=== PATIENT | male | born 1990 | race American Indian/Alaskan Native ===

== ENCOUNTER 2019-05-06 02:52 | Emergency (ER) | payer SELFPAY ==
[2019-05-06 03:03] VITALS: BP 123/82
[2019-05-06 03:44] LABS: Bacteria,Urine 1+ /HPF (Negative); Bilirubin,Urine NEG (Negative); Blood,Urine LG (Negative); Color,Urine Yellow (Yellow); Mucus,Urine FEW /HPF; Protein,Urine <15 mg/dL mg/dL (Negative)
[2019-05-06] MEDS ORDERED: SODIUM CHLORIDE 0.9% 1000 ML 1,000 ML IV ONE (03:47)
[2019-05-06] MEDS ORDERED: ONDANSETRON 4 MG/2 ML INJ IV ONE (03:47)
[2019-05-06] MEDS ORDERED: KETOROLAC 30 MG/1 ML INJ IV ONE (03:47)
--- NOTE | 2019-05-06 03:52 | Emergency Department Report ---
ED Abdominal Pain HPI - General Chief Complaint: Abdominal Pain Stated Complaint: RT FLANK PAIN Time Seen by Provider: 05/06/19 03:46 Source: patient Mode of arrival: Ambulatory Limitations: No Limitations - History of Present Illness Initial Comments: Mr. Bradley is a 29 y/o aam who presents for right flank pain radiating to superpubic region x 3 weeks with n/v , urinary frequency, denies hematuria, denies fever or chills. symptomes relieved by nothing, symptoms exacerbated by movment. Complaint: flank pain Onset/Timin -: week(s) Location: R flank Radiation: R flank Severity: moderate Severity scale (0 -10): 5 Quality: aching, sharp Consistency: constant Improves With: nothing Worsens With: nothing Associated Symptoms: nausea, vomiting. denies: diarrhea, constipation, melena, hematuria - Related Data Previous Rx's Medication Instructions Recorded Last Taken Type Ibuprofen [Motrin 800 MG tab] 800 mg PO Q8HR PRN #30 tablet 09/15/15 Unknown Rx Acetaminophen/Codeine [Tylenol 1 tab PO Q6H PRN #20 tab 11/04/15 Unknown Rx /Codeine # 3 tab] Cyclobenzaprine [Flexeril 10 MG 10 mg PO TID PRN #30 tablet 11/04/15 Unknown Rx TAB] Ibuprofen [Motrin 600 MG tab] 600 mg PO Q8H PRN #40 tablet 11/04/15 Unknown Rx Ciprofloxacin HCl [Ciprofloxacin 500 mg PO BID 10 Days #20 tab 05/06/19 Unknown Rx TAB] Ketorolac [Toradol] 10 mg PO Q6H PRN #12 tablet 05/06/19 Unknown Rx Tamsulosin [Flomax] 0.4 mg PO QDAY #7 cap 05/06/19 Unknown Rx Allergies Allergy/AdvReac Type Severity Reaction Status Date / Time No Known Allergies Allergy Unverified 05/21/15 00:15 ED Review of Systems ROS: Stated complaint: RT FLANK PAIN Other details as noted in HPI Constitutional: denies: chills, fever Eyes: as per HPI ENT: denies: ear pain, throat pain Respiratory: denies: cough, shortness of breath, wheezing Cardiovascular: denies: chest pain, palpitations Endocrine: no symptoms reported Gastrointestinal: abdominal pain (right flank ), nausea, vomiting. denies: diarrhea, constipation, melena Genitourinary: denies: urgency, dysuria Musculoskeletal: back pain (right flankl ). denies: joint swelling, arthralgia Skin: denies: rash, lesions Neurological: denies: headache, weakness, paresthesias Psychiatric: denies: anxiety, depression Hematological/Lymphatic: denies: easy bleeding, easy bruising ED Past Medical Hx - Past Medical History Previous Medical History?: Yes Hx Asthma: Yes Additional medical history: left elbow tendonitis - Surgical History Past Surgical History?: No - Social History Smoking Status: Never Smoker Substance Use Type: Alcohol - Medications Home Medications: Home Medications Medication Instructions Recorded Confirmed Last Taken Type Ibuprofen [Motrin 800 MG tab] 800 mg PO Q8HR PRN #30 tablet 09/15/15 Unknown Rx Acetaminophen/Codeine [Tylenol 1 tab PO Q6H PRN #20 tab 11/04/15 Unknown Rx /Codeine # 3 tab] Cyclobenzaprine [Flexeril 10 MG 10 mg PO TID PRN #30 tablet 11/04/15 Unknown Rx TAB] Ibuprofen [Motrin 600 MG tab] 600 mg PO Q8H PRN #40 tablet 11/04/15 Unknown Rx Ciprofloxacin HCl [Ciprofloxacin 500 mg PO BID 10 Days #20 tab 05/06/19 Unknown Rx TAB] Ketorolac [Toradol] 10 mg PO Q6H PRN #12 tablet 05/06/19 Unknown Rx Tamsulosin [Flomax] 0.4 mg PO QDAY #7 cap 05/06/19 Unknown Rx ED Physical Exam - General Limitations: No Limitations General appearance: alert, in no apparent distress - Head Head exam: Present: atraumatic, normocephalic - Eye Eye exam: Present: normal appearance, PERRL, EOMI Pupils: Present: normal accommodation - ENT ENT exam: Present: mucous membranes moist - Neck Neck exam: Present: normal inspection, full ROM. Absent: tenderness - Respiratory Respiratory exam: Present: normal lung sounds bilaterally. Absent: respiratory distress, wheezes, stridor, chest wall tenderness - Cardiovascular Cardiovascular Exam: Present: regular rate, normal rhythm, normal heart sounds. Absent: systolic murmur, diastolic murmur, rubs, gallop - GI/Abdominal GI/Abdominal exam: Present: soft, normal bowel sounds. Absent: distended, tenderness, guarding, rebound, rigid, bruit, hernia - Rectal Rectal exam: Present: deferred - Extremities Exam Extremities exam: Present: normal inspection - Back Exam Back exam: Present: full ROM, tenderness, CVA tenderness (R). Absent: CVA tenderness (L), vertebral tenderness, rash noted - Neurological Exam Neurological exam: Present: alert, oriented X3, CN II-XII intact, normal gait - Psychiatric Psychiatric exam: Present: normal affect, normal mood - Skin Skin exam: Present: warm, dry, intact, normal color. Absent: rash ED Course Vital Signs 05/06/19 05/06/19 02:58 04:24 Temperature 98.6 F Pulse Rate 80 Respiratory 18 16 Rate Blood Pressure 123/82 O2 Sat by Pulse 97 Oximetry ED Medical Decision Making - Lab Data Result diagrams: 05/06/19 03:57 05/06/19 03:57 Labs 05/06/19 05/06/19 05/06/19 03:27 03:57 03:57 WBC 8.9 RBC 4.88 Hgb 14.8 Hct 42.7 MCV 88 MCH 30 MCHC 35 H RDW 12.9 L Plt Count 178 Sodium 141 Potassium 4.0 Chloride 103.5 Carbon Dioxide 25 Anion Gap 17 BUN 17 Creatinine 1.2 Estimated GFR > 60 BUN/Creatinine Ratio 14 Glucose 153 H Calcium 9.4 Total Bilirubin 0.30 AST 25 ALT 47 Alkaline Phosphatase 67 Total Protein 6.5 Albumin 3.8 L Albumin/Globulin Ratio 1.4 Lipase 36 Urine Color Yellow Urine Turbidity Clear Urine pH 5.0 Ur Specific [place] 1.021 Urine Protein <15 mg/dl Urine Glucose (UA) Neg Urine Ketones Neg Urine Blood Lg Urine Nitrite Neg Urine Bilirubin Neg Urine Urobilinogen 2.0 Ur Leukocyte Esterase Neg Urine WBC (Auto) 6.0 Urine RBC (Auto) > 182.0 U Epithel Cells (Auto) < 1.0 Urine Bacteria (Auto) 1+ Urine Mucus Few - Radiology Data Radiology results: report reviewed, image reviewed Referring Physician: ROMAN GAMA Patient Name: DEVIN BRADLEY Date of : 1990 Sex: Male Report Date: 2019-05-06 Report Status: Finalized Findings [address] [address] Cat Scan Report Signed Patient: DEVIN BRADLEY JR MR #: [id number] : 1990 Acct:[id number] Age/Sex: 29 / M ADM Date: 05/06/19 Loc: ED Attending Dr: Ordering Physician: ROMAN GAMA NP Date of Service: 05/06/19 Procedure(s): CT abdomen pelvis wo con Accession Number(s): [id number] cc: ROMAN GAMA NP CT ABDOMEN AND PELVIS WITHOUT CONTRAST INDICATION: Right flank pain. History of renal stones. TECHNICAL: Multiple axial CT images of the abdomen and pelvis were acquired without intravenous contrast. Sagittal and coronal reformats were obtained. All CTs at this facility utilize dose reduction techniques including automated exposure control, iterative reconstruction and weight based dosing when appropriate to reduce patient radiation dose to as low as reasonable achievable. COMPARISON: None FINDINGS: Limited imaging of the bilateral lung bases demonstrates no acute abnormality. Abdomen: Within the limitations of today's noncontrast study, the liver, spleen, pancreas, bilateral adrenal glands and left kidney show no evidence of acute abnormality. There is mild right- sided hydronephrosis and hydroureter. There is no evidence of bowel obstruction or free fluid. The appendix is visualized and appears normal. Pelvis: There is an obstructing 2-3 mm stone in the distal right ureter. The urinary bladder appears normal. There is no free pelvic fluid. Bones and Soft Tissues: Evaluation of bony structures demonstrates no evidence of acute bony abnormality. Evaluation of soft tissue structures show no focal soft tissue abnormality. IMPRESSION: 1. Obstructing 2-3 mm stone in the distal right ureter causing mild right-sided hydronephrosis. Signer Name: Harper Johnson MD Signed: 05/06/2019 6:52 AM Workstation Name: [id number] Transcribed By: EB Dictated By: Harper Johnson MD Electronically Authenticated By: Harper Johnson MD Signed Date/Time: 05/06/1952 DD/ 6 TD/TT: - Medical Decision Making symptoms improved, CT Abd Pelvis 2mm distal ureter calculi, pt is voiding without difficulty, pt is tolerating po intake, there is no n/v, no fever, Pt has hx of renal stones, plan: cipro, toradol, flomax follow up with urology in 2-3 days , return to ed if symptoms worsen, pt verbalized agreement and understanding of discharge plan. Critical care attestation.: If time is entered above; I have spent that time in minutes in the direct care of this critically ill patient, excluding procedure time. ED Disposition Clinical Impression: Kidney stones Disposition: - TO HOME OR SELFCARE Is pt being admited?: No Does the pt Need Aspirin: No Condition: Stable Instructions: Kidney Stones (ED) Prescriptions: Ciprofloxacin HCl [Ciprofloxacin TAB] 500 mg PO BID 10 Days #20 tab Tamsulosin [Flomax] 0.4 mg PO QDAY #7 cap Ketorolac [Toradol] 10 mg PO Q6H PRN #12 tablet PRN Reason: Pain Referrals: BENITO SCOTT MD [Staff Physician] - 3-5 Days Forms: Work/School Release Form(ED) Time of Disposition: 07:01
[2019-05-06 03:54] LABS: RBC,Urine > 182.0 /HPF (0.0-6.0)
[2019-05-06 04:32] LABS: Hematocrit 42.7 % (35.5-45.6); Hemoglobin 14.8 gm/dl (11.8-15.2); Mean Corpuscular HGB Conc 35 % (32-34); Mean Corpuscular Volume 88 fl (84-94); Platelet Count 178 K/mm3 (140-440); Red Blood Count 4.88 M/mm3 (3.65-5.03); Red Cell Distribution Width 12.9 % (13.2-15.2)
[2019-05-06 04:57] LABS: Alanine Aminotransferase 47 units/L (7-56); Albumin 3.8 g/dL (3.9-5); BUN/Creatinine Ratio 14; Blood Urea Nitrogen 17 mg/dL (9-20); Calcium 9.4 mg/dL (8.4-10.2); Hemolysis Index 8
[2019-05-06] MEDS ORDERED: cefTRIAXone/NS 1 GM/50 ML 1 GM/50 ML BAG IV ONE (06:13)
--- NOTE | 2019-05-06 06:56 | Cat Scan Report ---
CT ABDOMEN AND PELVIS WITHOUT CONTRAST INDICATION: Right flank pain. History of renal stones. TECHNICAL: Multiple axial CT images of the abdomen and pelvis were acquired without intravenous contr ast. Sagittal and coronal reformats were obtained. All CTs at this facility utilize dose reduction techniques including automated exposure control, iterative reconstruction and weight based dosing whe n appropriate to reduce patient radiation dose to as low as reasonable achievable. COMPARISON: None FINDINGS: Limited imaging of the bilateral lung bases demonstrates no acute abnormality. Abdomen: Within the limitations of today's noncontrast study, the liver, spleen, pancreas, bilateral adrenal glands and left kidney show no evidence of acute abnormality. There is mild right-sided hydro nephrosis and hydroureter. There is no evidence of bowel obstruction or free fluid. The appendix is v isualized and appears normal. Pelvis: There is an obstructing 2-3 mm stone in the distal right ureter. The urinary bladder appears normal. There is no free pelvic fluid. Bones and Soft Tissues: Evaluation of bony structures demonstrates no evidence of acute bony abnorma lity. Evaluation of soft tissue structures show no focal soft tissue abnormality. IMPRESSION: 1. Obstructing 2-3 mm stone in the distal right ureter causing mild right-sided hydronephrosis. Signer Name: Harper Johnson MD Signed: 05/06/2019 6:52 AM Workstation Name: [email or web address]
== END 2019-05-06 08:15 | disposition home or self-care (01) ==
LOC: ED 02:52
DX: N20.2 Calculus of kidney with calculus of ureter (principal); R11.2 Nausea with vomiting, unspecified; J45.909 Unspecified asthma, uncomplicated; F10.10 Alcohol abuse, uncomplicated; Z79.899 Other long term (current) drug therapy
CPT/HCPCS: 36415; 74176; 80053; 81001; 83690; 85027; 96361; 96365; 96375; 99284; J0696; J1885; J2405; J7030